=== PATIENT | female | born 1975 | race Caucasian/White ===

== ENCOUNTER 2023-07-27 08:58 | Emergency (ER) | payer OTHER, SELFPAY | END 2023-07-27 09:08 | disposition left against medical advice (07) | PROVIDERS: PCP Family Medicine | DX: Z53.21 Procedure and treatment not carried out due to patient leaving prior to being seen by health care provider (principal) | CPT/HCPCS: 99199 ==

== ENCOUNTER 2023-08-25 01:50 | Day surgery (SDC) | payer OTHER, SELFPAY ==
[2023-08-23 08:18] VITALS: BMI 40.8
--- NOTE | 2023-08-23 08:23 | PC.NURSE ---
Report to the Outpatient Waiting Room, entrance under the green pavilion located off [facility], at time 0700 on date 08/25/23. Planned Procedure Time: 0900. Time changes happen often and if your time is changed the preop area will call you the afternoon before. - You and your visitor will be asked to self-screen and do not enter if you have any COVID symptoms. - A mask is optional within the hospital at this time. Patients may have clear liquids (water, carbonated beverages, clear teas, apple juice) until 3 hours prior to surgery with a maximum of 20 ounces. - No food from midnight until time of surgery Take the following medications with a SIP of water the morning of surgery: NONE DO NOT STOP ANY OF YOUR OTHER PRESCRIPTION MEDICATIONS PRIOR TO SURGERY ?EXCEPT THE FOLLOWING Medications to discontinue per physician: VITAMINS/SUPPLEMENTS Date to take last dose: NO MORE UNTIL AFTER SURGERY Please no make-up, nail stateless, hairspray, perfume, deodorant, or body powder the day of surgery. No jewelry (including any body piercings) or valuables the day of surgery, leave them at home. Please take a shower or bath the night before, or the morning of, surgery with an antibacterial soap. Wear comfortable, loose fitting clothing. - Jewelry must be removed prior to entering the operating room. Rings and piercings that are not removed may be cut off. - The hospital will not accept responsibility for valuables. - Please leave all valuables, including medications, at home the day of surgery. If you are going home after surgery, a licensed water taxi driver must drive you home. - NO public transportation without another adult if you receive anesthesia. - We recommend that an adult stay with you for 24 hours following discharge. - We also recommend that you do not drive, make important decision, drink alcoholic beverages, or take any drugs that were not prescribed by your health care provider for at least 24 hours after your discharge time. Follow any additional instructions given to you from your surgeon. If you or anyone in your household have experienced Covid symptoms in the past week, please notify your surgeon or the nurse liaison at the phone number below for possible testing. Telephone instructions given to PT - AMIRAH FLOWER and asked if any additional questions and then verbalized understanding. Patient advised to call surgeon office or pre surgery nurse liaison [phone] if any additional questions.
--- NOTE | 2023-08-24 16:23 | PM.IMHP ---
H&P: HPI History of Present Illness Date/Time: 08/24/23 16:23 47-year-old 2 para 2000 female presents with complaints of vaginal bleeding and pain. States her cycles have increased in severity and for 1-2 days of her cycle is changing pad and time lb at least hourly if not more frequently. Also severe pain during this time. Denies any significant irregular bleeding or pain when she is not on her menstrual cycle. Recent ultrasound showed 6-7 cm fibroid as well as endometrial thickness of 10mm. Also has incisional hernia which she has seen Dr. Villaseñor and discussed surgery. Ultimately patient will be having hysterectomy with hernia repair, at this point desires to help with the bleeding but not definitive surgery. Chief Complaint: Symptomatic fibroid uterus Review of Systems Review of Systems: All systems reviewed & are unremarkable except as noted in HPI and below PMFSH Past Medical History Medical History Anxiety Parmar's palsy (~07/2017) Depression Diverticulitis HSV-1 (herpes simplex virus 1) infection (~2007) Screening mammogram, encounter for Surgical History Surgical History History of 03/17/93 primary c/s--breech 04/16/06 rpt c/s w/ tubal ligation History of laparoscopy (04/16/05) History of tubal ligation (04/16/06) Family History Family History Father Hypertension Diabetes mellitus Alcohol abuse Malignant neoplasm of prostate Mother Family history of malignant neoplasm of ovary Family history of chronic obstructive pulmonary disease Family history of Alzheimer's disease Family history of lung cancer Family history of malignant neoplasm of uterus Congestive heart failure Alcohol abuse Social History Social History Smoking status: Former smoker Tobacco type: cigarettes Second hand tobacco smoke exposure: Yes Smoking end date: 10/17/97 Additional smoking assessment comments: 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 Alcohol intake: current Drinks per week: 2 Substance use: never Substance use type: does not use Living arrangements: with family Additional living arrangements comments: Occupation/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 Gender identity (if verbalized by the patient): Female Sexual Orientation (if Verbalized by the Patient): Straight or Heterosexual Spiritual care concerns: No Meds Home Medications and Allergies Home Medications Medication Instructions Recorded Confirmed Type multivitamin 1 tablet PO DAILY 08/23/23 08/23/23 History Allergies Allergy/AdvReac Type Severity Reaction Status Date / Time No Known Allergies Allergy Verified 08/23/23 08:17 Exam Const: General: cooperative and healthy appearing Resp: Effort & Inspection: normal respiratory effort Auscultation: clear to auscultation bilaterally Cardio: Rate: regular rate Rhythm: regular rhythm GI: Inspection: visible herniation GI Palp: Yes Hernia present Auscultation: normal bowel sounds : External Female Exam: normal external appearance Speculum Exam - Vagina: normal appearance of the vagina Speculum Exam - Cervix: normal appearance of the cervix Bimanual exam- vagina & uterus: enlarged ( 10-12 week size) Bimanual Exam- Adnexa, other: normal adnexae Assessment and Plan Assessment and plan (1) Menometrorrhagia: Code(s): N92.1 - Excessive and frequent menstruation with irregular cycle Status: Acute (2) Fibroid uterus: Code(s): D25.9 - Leiomyoma of uterus, unspecified Status: Acute (3) Incisional hernia: Code(s): K43.2 - Incisional hernia without obstruction or gangrene Status: Acute Plan proceed with hysteroscopy with uterine curettings as we
--- NOTE | 2023-08-25 07:14 | WPDHPUPDATE1 ---
History and Physical Update Update Date/Time: 08/25/23 07:14 History and Physical has been reviewed, including an updated exam of the patient. There are NO changes in the patient's condition. Risks, benefits, and alternatives have been discussed and questions answered. Patient agrees to proceed with procedure.
[2023-08-25 07:50] LABS: Hematocrit 40.4 % (37.0-47.0); Hemoglobin 13.2 g/dL (12.0-15.0); Mean Corpuscular HGB Conc 32.7 g/dl (32-36); Mean Corpuscular Hemoglobin 32.3 pg (26-34); Mean Corpuscular Volume 98.8 fl (80-100); Mean Platelet Volume 10.8 fl (7.4-10.4); Platelet Count Result 157 k/mm3 (150-375); Red Blood Count 4.09 M/mm3 (4.2-5.4); Red Cell Distribution Width 12.3 % (11.5-14.5); White Blood Count 6.4 K/mm3 (4.5-10.0)
[2023-08-25] MEDS: ACETAMINOPHEN 500 MG TABLET 1000 MG PO (08:00)
--- NOTE | 2023-08-25 08:10 | WPDANESEPPF ---
Anes - Initial Pre Proc Eval Procedure: Operation Date: 08/25/23 09:00 Proposed Procedures p Hysteroscopy Dilation and Curettage, Kaylie Endometrial Ablation - Salinas Franz MD Date/Time: 08/25/23 08:10 Surgeon: Salinas Franz MD Pre Op Diagnosis: menometrorrhagia Patient Data Age: 47 Gender: F Height: 1.63 m Weight: 112.04 kg Allergies Allergy/AdvReac Type Severity Reaction Status Date / Time No Known Allergies Allergy Verified 08/25/23 08:10 Home Medications Medication Instructions Recorded Confirmed Type multivitamin 1 tablet PO DAILY 08/23/23 08/23/23 History Laboratory Tests 08/25/23 07:40 WBC 6.4 K/mm3 (4.5-10.0) RBC 4.09 L M/mm3 (4.2-5.4) Hgb 13.2 g/dL (12.0-15.0) Hct 40.4 % (37.0-47.0) MCV 98.8 fl (80-100) MCH 32.3 pg (26-34) MCHC 32.7 g/dl (32-36) RDW 12.3 % (11.5-14.5) Plt Count 157 k/mm3 (150-375) MPV 10.8 H fl (7.4-10.4) Patient hx anesthesia problems: none Family hx anesthesia problems: none Results Review: All pre-operative results and documents have been reviewed as part of the pre-operative evaluation. [facility] Past Medical History Medical History Anxiety Parmar's palsy (~07/2017) Depression Diverticulitis HSV-1 (herpes simplex virus 1) infection (~2007) Screening mammogram, encounter for Surgical History Surgical History History of 03/17/93 primary c/s--breech 04/16/06 rpt c/s w/ tubal ligation History of laparoscopy (04/16/05) History of tubal ligation (04/16/06) Family History Family History Father Hypertension Diabetes mellitus Alcohol abuse Malignant neoplasm of prostate Mother Family history of malignant neoplasm of ovary Family history of chronic obstructive pulmonary disease Family history of Alzheimer's disease Family history of lung cancer Family history of malignant neoplasm of uterus Congestive heart failure Alcohol abuse Social History Social History Smoking status: Former smoker Tobacco type: cigarettes Second hand tobacco smoke exposure: Yes Smoking end date: 10/17/97 Additional smoking assessment comments: 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 Alcohol intake: current Drinks per week: 2 Substance use: never Substance use type: does not use Living arrangements: with family Additional living arrangements comments: Occupation/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 Gender identity (if verbalized by the patient): Female Sexual Orientation (if Verbalized by the Patient): Straight or Heterosexual Spiritual care concerns: No Anes - Eval Final PreProcedure Day of Procedure 08/25/23 08:10 Patient weight: morbidly obese Heart: regular rate and rhythm Lungs: clear to auscultation Airway: Mallampati scale class II Neurological: alert and oriented Last oral intake: >/= 8 hours ASA classification: III Emergent: no Anesthetic plan: proceed Anesthesia type and monitoring: general GIVS and standard monitoring Results Review: All pre-operative results and documents have been reviewed as part of the pre-operative evaluation. Informed Consent: The patient's anesthetic plan and its attendant risks and benefits were discussed with the patient/family/POA. Questions were solicited and answers provided to the satisfaction of the patient/family/POA.
[2023-08-25] MEDS: ceFAZolin 2 GM/D5W 50 ML 2 GM/50 ML BAG IVPB (08:43)
--- NOTE | 2023-08-25 09:06 | W.PM.PROC2 ---
Procedure Note - Detailed Date of Procedure 08/25/23 Pre-op Diagnosis menometrorrhagia Post-op Diagnosis Same Procedure Performed 1. Hysteroscopy with uterine curettings 2. Endometrial ablation Surgeon Salinas Franz MD Anesthesia MAC Findings Enlarged fibroid uterus. Thickened endometrial cavity. Description of Procedure Patient prepped and draped in usual manner for this procedure. Bimanual exam revealed enlarged fibroid uterus 12-14 week size. Cervix was grasped with synechia limb and dilated to allow the hysteroscope be placed which revealed thickened tissue throughout the cavity though no impingement of fibroids. Curettings were obtained and then the Kaylie instrument was placed. Cavity assessment was performed and instrument activated. At the end the procedure hysteroscopic exam revealed good destruction throughout with no damage to the integrity of the uterine wall. Patient was then sent to recovery room in stable condition. Estimated Blood Loss 10 Drains No Packing No Pathology Yes Complications No immediate complications Condition Stable Disposition PACU [facility] Billing Surgery - Charge Forward: Surgery Billing
[2023-08-25 09:09] VITALS: BP 89/52; PULSE 79; RESP 16; O2SAT 94
[2023-08-25] MEDS: LACTATED RINGERS 1,000 ML 30 ML IV CONT (09:09)
[2023-08-25 09:40] VITALS: BP 105/74; PULSE 57; RESP 16
== END 2023-08-25 10:01 | disposition home or self-care (01) ==
PROVIDERS: PCP Family Medicine; Visit Provider Obstetrics & Gynecology
PROC: 0U5B8ZZ Destruction of Endometrium, Via Natural or Artificial Opening Endoscopic (ICD-10-PCS; CPT 58563; principal; 2023-08-25 09:00)
DX: N92.1 Excessive and frequent menstruation with irregular cycle (principal); K43.2 Incisional hernia without obstruction or gangrene; D25.9 Leiomyoma of uterus, unspecified; F41.9 Anxiety disorder, unspecified; F32.A Depression, unspecified; B00.9 Herpesviral infection, unspecified; Z87.891 Personal history of nicotine dependence; E66.01 Morbid (severe) obesity due to excess calories; Z68.41 Body mass index [BMI] 40.0-44.9, adult
CPT/HCPCS: 58563; 36415; 85027; 88305; A9270; J0690; J2250; J2704; J3010; J7120

== ENCOUNTER 2023-10-09 12:52 | Emergency (ER) | payer OTHER, SELFPAY ==
[2023-10-09 13:56] VITALS: BP 116/94; RESP 18; TEMP 36.3; O2SAT 100
--- NOTE | 2023-10-09 15:09 | ED.GENADULT ---
HPI - General Adult General Chief complaint: Upper Respiratory Infection Stated complaint: Sore Throat Source: patient Mode of arrival: ambulatory Limitations: no limitations History of Present Illness HPI narrative: Patient presents for evaluation of sick symptoms since yesterday. Symptoms include sore throat, ear fullness, neck discomfort, and mild cough. She states that it feels like she is swallowing razor blades. She denies any fever, chills, nausea, vomiting, diarrhea,and SOB. In terms of sick contacts, she cannot identify any specific individuals however she does work in a hospital. She does not smoke. She is not taking any medications for her symptoms. Related Data Home Medications Medication Instructions Recorded Confirmed multivitamin 1 tablet PO DAILY 08/23/23 09/13/23 Allergies Allergy/AdvReac Type Severity Reaction Status Date / Time No Known Allergies Allergy Verified 09/13/23 08:18 Review of Systems Review of Systems: CONSTITUTIONAL: Denies fever, chills, or sweats. EYES: Denies visual changes, redness, or discharge. ENT: Reports sore throat and ear fullness. Reports neck discomfort CARDIOVASCULAR: Denies chest pain, palpitations, or edema. RESPIRATORY: Reports occasional cough. Denies shortness of breath. GASTROINTESTINAL: Denies abdominal pain, nausea, vomiting, or diarrhea. GENITOURINARY: Denies dysuria or hematuria. SKIN: Denies rash or itching. MUSCULOSKELETAL: Denies back pain, joint pain, or myalgia. NEUROLOGIC: Denies headache, numbness, dizziness, or weakness. PSYCHIATRIC: Denies anxiety or depression. [facility] Past Medical History Medical History Anxiety Parmar's palsy (~07/2017) Depression Diverticulitis HSV-1 (herpes simplex virus 1) infection (~2007) Screening mammogram, encounter for Surgical History Surgical History History of 03/17/93 primary c/s--breech 04/16/06 rpt c/s w/ tubal ligation History of hysteroscopy (08/25/23) Hysteroscopy with uterine curettings Endometrial ablation History of laparoscopy (04/16/05) History of tubal ligation (04/16/06) Family History Family History Father Hypertension Diabetes mellitus Alcohol abuse Malignant neoplasm of prostate Mother Family history of malignant neoplasm of ovary Family history of chronic obstructive pulmonary disease Family history of Alzheimer's disease Family history of lung cancer Family history of malignant neoplasm of uterus Congestive heart failure Alcohol abuse Social History Social History Smoking status: Former smoker Tobacco type: cigarettes Second hand tobacco smoke exposure: Yes Smoking end date: 10/17/97 Additional smoking assessment comments: 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 HEAD: Normocephalic, atraumatic. EYES: PERRLA and EOMI. ENT: Nares clear, no rhinorrhea or epistaxis. Mucous membranes moist. Posterior pharyngeal erythema without exudate. Uvula is midline. Bilateral TMs pearly clayton nonbulging NECK: Supple. No adenopathy or masses. No carotid bruits or JVD CHEST: Clear to auscultation. No respiratory distress. No wheezes rales or rhonchi HEART: Regular rate and rhythm. No murmur heard. Anahi
== END 2023-10-09 15:12 | disposition home or self-care (01) ==
PROVIDERS: Emergency Provider Nurse Practitioner
DX: J02.9 Acute pharyngitis, unspecified (principal); Z87.891 Personal history of nicotine dependence
CPT/HCPCS: 87081; 87880; 99213; G0463

== ENCOUNTER 2023-12-16 14:09 | Outpatient (CLI) | payer OTHER, SELFPAY ==
--- NOTE | ~2023-12-16 | MM_ITS ---
EXAMINATION: MM screening eleonora BI w elvira HISTORY: Screening TECHNIQUE: Craniocaudal and mediolateral oblique 3-D tomosynthesis images were obtained and synthetic 2-D images were generated. CAD analysis was submitted and interpreted. COMPARISON: No prior mammogram is available for comparison at this institution. BREAST PARENCHYMAL COMPOSITION: Dense: The breasts are heterogeneously dense, which may obscure small masses FINDINGS: There are bilateral breast asymmetries centered in the upper outer quadrants. There are no suspicious calcifications or architectural distortion. IMPRESSION: 1. Bilateral breast asymmetries. 2. Additional mammographic views and possible breast ultrasound are recommended. BI-RADS Category 0: Incomplete: Needs additional imaging evaluation. Reviewed, dictated and finalized at location A. NG MAKER IMPRESSION: 1. Bilateral breast asymmetries. 2. Additional mammographic views and possible breast ultrasound are recommended . BI-RADS Category 0: Incomplete: Needs additional imaging evaluation.
== END 2023-12-16 14:10 | disposition home or self-care (01) ==
LOC: CHSIMG 14:16
PROVIDERS: Visit Provider Obstetrics & Gynecology
DX: Z12.31 Encounter for screening mammogram for malignant neoplasm of breast (principal); R92.8 Other abnormal and inconclusive findings on diagnostic imaging of breast
CPT/HCPCS: 77063; 77067

== ENCOUNTER 2023-12-29 08:31 | Outpatient (CLI) | payer OTHER, SELFPAY ==
--- NOTE | ~2023-12-29 | MMUS_ITS ---
EXAMINATION: MM diagnostic eleonora BI w elvira, US breast BI complete HISTORY: Bilateral breast mammographic asymmetries reported on 12/16/2023 screening mammogram examinati on TECHNIQUE: Additional 3-D tomosynthesis images of both breasts were performed and synthetic 2-D image s were generated. CAD analysis was submitted and interpreted. High resolution complete bilateral sabrina st ultrasound examination including all 4 quadrants and subareolar areas was performed. COMPARISON: December 16, 2023 bilateral screening mammogram FINDINGS: MAMMOGRAPHIC FINDINGS: No suspicious mass, architectural distortion, malignant calcification, skin thickening or retraction of either breast is detected. ULTRASOUND: No suspicious mass or shadowing, cyst or other sylvian sonographic abnormality of either breast is de tected. IMPRESSION: 1. No evidence of malignancy 2. Routine annual mammographic screening is recommended BI-RADS Category 1: Negative Reviewed, dictated and finalized at location A. IMPRESSION: 1. No evidence of malignancy 2. Routine annual mammographic screening is recommended BI-RADS Category 1: Negative
== END 2023-12-29 08:32 | disposition home or self-care (01) ==
LOC: CHSIMG 08:34
PROVIDERS: Visit Provider Obstetrics & Gynecology
DX: N64.89 Other specified disorders of breast (principal)
CPT/HCPCS: 76641; 77062; 77066; G0279